=== PATIENT | male | born 1995 | race Caucasian/White ===

== ENCOUNTER 2023-02-12 20:54 | Emergency (ER) | payer OTHER, SELFPAY ==
[2023-02-12 21:01] VITALS: BP 145/91; PULSE 85; RESP 16; TEMP 36.8; O2SAT 100
--- NOTE | 2023-02-12 21:27 | ED.GENADULT ---
HPI - General Adult General Chief complaint: Wound/Laceration Stated complaint: forehead lac/hi Time Seen by Provider: 02/12/23 21:19 History of Present Illness HPI narrative: 27-year-old male presented the emergency department for evaluation after getting a head injury from the garage door. 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 Patient denies any loss of consciousness. Patient denies any associated neck pain or back pain. patient family were concerned that perhaps the injury needed sutures. Mother states that the wound did bleed a lot when it first happened but bleeding was resolved upon arrival to the emergency department. Patient is unsure of his last tetanus. Related Data Allergies Allergy/AdvReac Type Severity Reaction Status Date / Time No Known Allergies Allergy Verified 07/03/22 14:16 Review of Systems Review of Systems: All systems reviewed & are unremarkable except as noted in HPI and below PMFSH Past Medical History Medical History Allergic rhinitis Anxiety disorder, unspecified Insomnia Surgical History Surgical History History of wisdom tooth extraction 2019 Family History Family History Father Family history of mental disorder Mother Asthma Family history of allergic disorder Other Cerebrovascular accident Family history of Alzheimer's disease Family history of arthritis Family history of chronic obstructive pulmonary disease Family history of gout Family history of psoriasis Social History Social History Social History: anthropology student [employer] Smoking status: Never smoker Alcohol intake: never Substance use: never Living arrangements: with family Occupation/Education: occupation Gender identity (if verbalized by the patient): Male Additional gender identity comments: not sexually active Spiritual care concerns: No Agree to blood products: Yes Exam Narrative: APPEARANCE: Well appearing, no pain, no distress, well-nourished. HEAD: normocephalic, atraumatic. EYES: PERRLA/EOMI, conjunctivae clear. NOSE: Normal no drainage EARS:TMS clear with good light reflex. THROAT: Pharynx clear, no exudate. NECK: Supple. No adenopathy, no masses. RESPIRATORY: Airway patent, respirations nonlabored. Clear to auscultation bilaterally, no rales, rhonchi, wheezing. CARDIOVASCULAR: Regular rate and rhythm without murmurs rubs or gallops. ABDOMINAL: Soft, nontender, nondistended, normal bowel sounds MUSCULOSKELETAL: Moves all extremities. Strength/ROM intact, No edema, No calf tenderness. NEURO: Alert. Cranial nerves II through XII intact. Good gait. Good coordination SKIN: Superficial laceration of the forehead Course Course Emergency Course: 27-year-old male presenting to the ED for evaluation of a laceration. Laceration was well approximated and superficial. Wound was cleansed and no repair was necessary. Patient and family were updated on the laceration and treatment for home. Patient's tetanus status was updated. Antibiotic ointment was applied. Patient family were comfortable with wound care. All questions and concerns were addressed. Patient was well-appearing at time of discharge. Vital Signs Vital signs: Vital Signs Temperature 98.3 F 02/12/23 21:01 Pulse Rate 85 02/12/23 21:01 Respiratory Rate 16 02/12/23 21:01 Blood Pressure 145/91 H 02/12/23 21:01 Pulse Oximetry 100 02/12/23 21:01 Oxygen Delivery Room Air 02/12/23 21:01 Temperature 98.3 F 02/12/23 21:01 Pulse Rate 85 02/12/23 21:01 Respiratory Rate 16 02/12/23 21:01 Blood Pressure 145/91 H 02/12/23 21:01 Pulse Oximetry 100 02/12/23 21:01 Oxygen Delivery Room Air 02/12/23 21:0
[2023-02-12] MEDS: TETANUS,DIPHTHERIA,AC PERTUSSIS ADULT (0.5 ML) BOOSTRIX IM (21:30)
== END 2023-02-12 21:38 | disposition home or self-care (01) ==
PROVIDERS: Emergency Provider Emergency Medicine; PCP Family Medicine
DX: S01.81XA Laceration without foreign body of other part of head, initial encounter (principal); Z23 Encounter for immunization; W22.8XXA Striking against or struck by other objects, initial encounter
CPT/HCPCS: 90471; 90715; 99282